=== PATIENT | female | born 1950 | race Caucasian/White ===

== ENCOUNTER 2018-08-07 10:22 | Emergency (ER) | payer MEDICARE, OTHER ==
[~2018-08-07] VITALS: Ht 175.3 cm; Wt 113.2 kg
[~2018-08-07 10:22] MED LIST: ALL DAY10 MG PO; ASPIRIN EC325 MG PO; CITRACA1 PO; CITRACAL200 MG PO; COLACE100 MG PO; CYCLOBENZAPR10 MG PO; DALMANE30 MG OR; DALMANE30 MG PO; DICLOFENAC SODI75 MG PO; DOXYCYCL HYC100 MG PO; FLEXERIL10 MG PO; FLUARIX QUADRIV1 INJ IM; FLUZONE SPLT1 M1 IM; KEFLEX500 MG PO; KEPPRA500 MG PO; LEVOTHROID50 MCG PO; LEVOTHYROXIN50 MC1 PO; LEVOTHYROXIN50 MCG PO; LEVOTHYROXIN75 MC1 PO; LEXAPRO10 MG PO; LEXAPRO20 MG PO; LIPITOR20 MG PO; LYRICA50 MG PO; MEDDOSEPAK PO; MULTIVITAMI1 OR; OXYBUTYNIN5 M1 PO; OXYCODONE5 MG OR; PREDNISONE20 MG PO; PREVACID15 M3 PO; PROTONIX40 M2 PO; PULMICORT90 MCG PO; SYNTHROID PO; SYNTHROID100 MCG PO; TEMAZEPAM15 MG PO; TEMAZEPAM30 MG PO; VENTOLIN HF1; VENTOLIN HFA IN; VITAMIN C1000 MG OR; VITAMIN D2000 UNI1 OR; VITAMIN D400 UNI1 OR
[2018-08-07 11:15] LABS: ALBUMIN 3.7 g/dL (3.2-5.0); ALKALINE PHOSPHATASE 65 u/l (38-126); ANION GAP 14 (6-22 (CALC)); BILIRUBIN, TOTAL 0.4 mg/dL (0.0-1.4); BUN 20 mg/dL (8-23); BUN/CREATININE RATIO 30 (12-20 (CALC)); CARBON DIOXIDE 23 mmol/l (22-30); CHLORIDE 108 mmol/l (95-108); CREATININE 0.7 mg/dL (0.5-1.0); GFR > 60 ML/MIN (>=60 (CALC)); GFR FOR AFR.AMER. > 60 ML/MIN (>=60 (CALC)); LIPASE 106 u/l (23-300); POTASSIUM 4.8 mmol/l (3.5-5.1); SGOT/AST 24 u/l (9-36); SODIUM 140 mmol/l (137-146); TOTAL PROTEIN 6.5 g/dL (6.3-8.2)
[2018-08-07 11:16] LABS: HEMATOCRIT 37.8 % (37.0-47.0); HEMOGLOBIN 11.8 g/dl (12.0-16.0); MEAN CELL VOLUME 78.4 fL CALC (80.0-100.0); MEAN CORPUSCULAR HGB 24.5 pG CALC (26.0-32.0); MEAN CORPUSCULAR HGB CONC 31.2 g/L CALC (32.0-36.0); NEUT# 5.49 thou/uL (2.00-7.15); RED BLOOD COUNT 4.82 mill/uL (4.20-5.60); RED CELL DISTRI WIDTH 20.9 % (11.5-15.5)
[2018-08-07] MEDS ORDERED: ROWEEPRA500 MG PO (11:21)
[2018-08-07] MEDS ORDERED: ASPIRIN81 MG PO (11:22)
[2018-08-07] MEDS ORDERED: LEXAPRO10 MG PO (11:23)
[2018-08-07] MEDS ORDERED: BENADRYL 25MG C25 MG PO (11:23)
[2018-08-07] MEDS ORDERED: PRAVASTATIN20 MG PO (11:25)
[2018-08-07] MEDS ORDERED: LYRICA50 MG PO (11:26)
[2018-08-07] MEDS ORDERED: DICLOFENAC SODI75 MG PO (11:28)
[2018-08-07] MEDS ORDERED: BUPROPION150 M4 PO (11:29)
[2018-08-07] MEDS ORDERED: OMEPRAZOLE10 MG PO (11:30)
[2018-08-07 11:32] LABS: D-DIMER 3.94 mg/L (0.19-0.60)
[2018-08-07 12:05] LABS: IMMATURE GRANULOCYTES 9.6 % (0.0-5.0)
[2018-08-07 15:47] VITALS: BP 94/65
== END 2018-08-07 15:47 | disposition short-term general hospital (02) ==
LOC: ED 10:22 → ED-I 10:44 → ED 15:47
PROVIDERS: Emergency Medicine
DX: T80.0XXA Air embolism following infusion, transfusion and therapeutic injection, initial encounter (principal); Z86.73 Personal history of transient ischemic attack (TIA), and cerebral infarction without residual deficits; I25.2 Old myocardial infarction; Z95.1 Presence of aortocoronary bypass graft
CPT/HCPCS: J1650; J2060; Q9967

== ENCOUNTER 2018-09-10 15:00 | Emergency (ER) | payer MEDICARE, OTHER ==
[~2018-09-10] VITALS: Ht 175.3 cm; Wt 112.3 kg
[~2018-09-10 15:00] MED LIST changes: +ASPIRIN81 MG PO; +BENADRYL 25MG C25 MG PO; +BUPROPION150 M4 PO; +OMEPRAZOLE10 MG PO; +PRAVASTATIN20 MG PO; +ROWEEPRA500 MG PO
[2018-09-10 16:11] LABS: HEMATOCRIT 39.1 % (37.0-47.0); HEMOGLOBIN 12.3 g/dl (12.0-16.0); IMMATURE GRANULOCYTES 0.3 % (0.0-5.0); MEAN CELL VOLUME 80.1 fL CALC (80.0-100.0); MEAN CORPUSCULAR HGB 25.2 pG CALC (26.0-32.0); MEAN CORPUSCULAR HGB CONC 31.5 g/L CALC (32.0-36.0); NEUT# 3.91 thou/uL (2.00-7.15); RED BLOOD COUNT 4.88 mill/uL (4.20-5.60); RED CELL DISTRI WIDTH 20.4 % (11.5-15.5)
[2018-09-10 16:12] LABS: GFR > 60 ML/MIN (>=60 (CALC)); GFR FOR AFR.AMER. > 60 ML/MIN (>=60 (CALC))
[2018-09-10 16:24] LABS: ANION GAP 13 (6-22 (CALC)); BUN 17 mg/dL (8-23); BUN/CREATININE RATIO 21 (12-20 (CALC)); CARBON DIOXIDE 25 mmol/l (22-30); CHLORIDE 106 mmol/l (95-108); CREATININE 0.8 mg/dL (0.5-1.0); GFR > 60 ML/MIN (>=60 (CALC)); GFR FOR AFR.AMER. > 60 ML/MIN (>=60 (CALC)); POTASSIUM 4.2 mmol/l (3.5-5.1); SODIUM 140 mmol/l (137-146)
[2018-09-10 17:23] VITALS: BP 132/73
== END 2018-09-10 17:46 | disposition home or self-care (01) ==
LOC: ED 15:00
PROVIDERS: Family Medicine
DX: R53.1 Weakness (principal); R42 Dizziness and giddiness; R41.0 Disorientation, unspecified; R20.2 Paresthesia of skin; G11.9 Hereditary ataxia, unspecified; I25.2 Old myocardial infarction; Z95.1 Presence of aortocoronary bypass graft; Z79.01 Long term (current) use of anticoagulants; Z86.73 Personal history of transient ischemic attack (TIA), and cerebral infarction without residual deficits
CPT/HCPCS: Q9967

== ENCOUNTER → 2018-11-19 | Outpatient (REF) | payer MEDICARE, OTHER ==
[~2018-11-19] MED LIST changes: +XARELTO10 MG PO
[2018-11-19 11:51] LABS: HEMATOCRIT 43.2 % (37.0-47.0); HEMOGLOBIN 13.6 g/dl (12.0-16.0); IMMATURE GRANULOCYTES 0.2 % (0.0-5.0); MEAN CORPUSCULAR HGB 26.5 pG CALC (26.0-32.0); MEAN CORPUSCULAR HGB CONC 31.5 g/L CALC (32.0-36.0); NEUT# 3.72 thou/uL (2.00-7.15); RED BLOOD COUNT 5.14 mill/uL (4.20-5.60); RED CELL DISTRI WIDTH 24.5 % (11.5-15.5)
[2018-11-19 12:31] LABS: ALBUMIN 4.2 g/dL (3.2-5.0); ALKALINE PHOSPHATASE 59 u/l (38-126); ANION GAP 12 (6-22 (CALC)); BILIRUBIN, TOTAL 0.5 mg/dL (0.0-1.4); BUN 16 mg/dL (8-23); BUN/CREATININE RATIO 19 (12-20 (CALC)); CARBON DIOXIDE 29 mmol/l (22-30); CHLORIDE 106 mmol/l (95-108); CREATININE 0.9 mg/dL (0.5-1.0); GFR > 60 ML/MIN (>=60 (CALC)); GFR FOR AFR.AMER. > 60 ML/MIN (>=60 (CALC)); POTASSIUM 4.4 mmol/l (3.5-5.1); SGOT/AST 30 u/l (9-36); SODIUM 143 mmol/l (137-146); TOTAL PROTEIN 6.7 g/dL (6.3-8.2)
== END | disposition home or self-care (01) ==
LOC: LAB 11:12
PROVIDERS: ATTEND Internal Medicine
DX: D50.9 Iron deficiency anemia, unspecified (principal)

== ENCOUNTER 2018-12-02 15:41 | Observation (INO) | payer MEDICARE, OTHER ==
[~2018-12-02] VITALS: Ht 170.2 cm; Wt 109.8 kg
[~2018-12-02 15:41] MED LIST changes: -XARELTO10 MG PO
--- NOTE | 2018-12-02 15:51 | NUR ---
PT TO ROOM VIA WC.
--- NOTE | 2018-12-02 16:35 | NUR ---
REMOVED C COLLAR PER MD ORDERED, C SPINE CLEARED. PT EXPRESSES RELEIF FROM NECK PAIN
--- NOTE | 2018-12-02 16:45 | NUR ---
PT WITH O2 SAT READING BETWEEN 90-98% , PT DENIES SOB OR DYSPNEA AT THIS TIME. APPLIED O2@2LPM TO MONITOR.
[2018-12-02 17:03] LABS: HEMATOCRIT 43.3 % (37.0-47.0); HEMOGLOBIN 13.5 g/dl (12.0-16.0); IMMATURE GRANULOCYTES 0.4 % (0.0-5.0); MEAN CELL VOLUME 84.9 fL CALC (80.0-100.0); MEAN CORPUSCULAR HGB 26.5 pG CALC (26.0-32.0); MEAN CORPUSCULAR HGB CONC 31.2 g/L CALC (32.0-36.0); NEUT# 2.84 thou/uL (2.00-7.15); RED BLOOD COUNT 5.1 mill/uL (4.20-5.60); RED CELL DISTRI WIDTH 23.9 % (11.5-15.5)
--- NOTE | 2018-12-02 17:20 | NUR ---
PT PULSE OX CONTINUES TO READ 89-98% ON O2@2LPM. RESP EVEN AND UNLABORED. DENIES DYSPNEA,CP OR DIZZINESS. MD AWARE. NURSE AT BEDSIDE. O2 DC TO AWAIT ABG. PT IN NO DISTRESS, STATES DOES NOT FEEL SOB. PT O2 SAT 87-94%.MEDICATED FOR 3/10 POSTERIOR HEADACHE. LIGHTS DIMMED FOR COMFORT. NURSE AT BEDSIDE
[2018-12-02 17:21] LABS: INTERNATIONAL NORMALIZED RATIO 1.1 RATIO (0.7-1.3)
[2018-12-02 17:23] LABS: ANION GAP 14 (6-22 (CALC)); BUN 17 mg/dL (8-23); BUN/CREATININE RATIO 19 (12-20 (CALC)); CARBON DIOXIDE 25 mmol/l (22-30); CHLORIDE 106 mmol/l (95-108); CREATININE 0.9 mg/dL (0.5-1.0); GFR > 60 ML/MIN (>=60 (CALC)); GFR FOR AFR.AMER. > 60 ML/MIN (>=60 (CALC)); POTASSIUM 4.4 mmol/l (3.5-5.1); SODIUM 140 mmol/l (137-146)
--- NOTE | 2018-12-02 17:50 | NUR ---
ABG DRAWN AND O2 RETURNED VIA NC @2LPM . PT DENIES CP OR PRESSURE
[2018-12-02] MEDS ORDERED: BENADRYL 25MG C25 MG PO (17:58)
--- NOTE | 2018-12-02 18:10 | NUR ---
ASSISSTED PT WITH LINEN CHANGE. PUREWICK APPLIED PER PT REQUEST FOR URINE. PT ALERT AND ORIENTED
--- NOTE | 2018-12-02 18:50 | NUR ---
RECEIVED REPORT FROM PHILIPP HITCHCOCK, IN ROOM INTRODUCED SELF TO PT. NO C/O AT THIS TIME.
--- NOTE | 2018-12-02 19:00 | NUR ---
PT. GIVEN DINNER TRAY.
--- NOTE | 2018-12-02 19:10 | NUR ---
ASSISTED WITH MEAL TRAY.
--- NOTE | 2018-12-02 20:14 | NUR ---
ATE 100% OF MEAL.
--- NOTE | 2018-12-02 20:58 | NUR ---
PT. TAKEN TO [facility] [place] VIA STRETCHER.
--- NOTE | 2018-12-02 21:19 | NUR ---
PT. BROUGHT UP VIA STRETCHER ACCOMPANIED BY ER NURSE; PT. ABLE TO TRANSFER TO BED WITH MINIMAL ASST. A/A/OX3; ADMISSION ASSESSMENT COMPLETED; BRUISE NOTED TO RIGHT BUTTOCK AND RIGHT MODI; SKIN INTACT; RIGHT LEG IS LONGER THAN LEFT LEG PER PT THIS IS A REULT FROM REVISION TO RIGHT KNEE; PT. IS WITH SLOW SPEECH AND SLIGHTLY SLURRED DUE TO CEREBULAR ATAXIA; PT. DOES REPORT STUTTERING POST FALL; NONE OBSERVED AT THIS TIME; PO FLUIDS OFFERED; ENCOURAGED TO CALL FOR ANY NEEDS; PT. INSTRUCTED NOT TO GET OOB ALONE; VERBALIZES UNDERSTANDING; PURE WIC IN PLACE PER PTS REQUEST; CALL LIGHT IS IN REACH.
[2018-12-02 21:45] VITALS: BP 137/76
--- NOTE | 2018-12-02 23:44 | NUR ---
PT. RESTING IN BED WITH EYES OPEN; NO DISTRESS NOTED; DENIES NEEDS/PAIN; CALL LIGHT IS IN REACH.
[2018-12-03 00:09] VITALS: BP 93/58
[2018-12-03 04:00] VITALS: BP 99/50
--- NOTE | 2018-12-03 04:00 | NUR ---
NEURO CHECK COMPLETED AND REMAINS UNCHANGED; VS OBTAINED; PO FLUIDS OFFERED; DENIES NEEDS; CALL LIGHT IS IN REACH.
[2018-12-03 07:19] LABS: HEMATOCRIT 39.8 % (37.0-47.0); HEMOGLOBIN 12.5 g/dl (12.0-16.0); MEAN CELL VOLUME 84.7 fL CALC (80.0-100.0); MEAN CORPUSCULAR HGB 26.6 pG CALC (26.0-32.0); MEAN CORPUSCULAR HGB CONC 31.4 g/L CALC (32.0-36.0); NEUT# 2.79 thou/uL (2.00-7.15); RED BLOOD COUNT 4.7 mill/uL (4.20-5.60); RED CELL DISTRI WIDTH 23.9 % (11.5-15.5)
[2018-12-03] MEDS ORDERED: XARELTO10 MG PO (07:23)
[2018-12-03 07:36] LABS: ALBUMIN 3.7 g/dL (3.2-5.0); ALKALINE PHOSPHATASE 55 u/l (38-126); ANION GAP 12 (6-22 (CALC)); BILIRUBIN, TOTAL 0.6 mg/dL (0.0-1.4); BUN 13 mg/dL (8-23); BUN/CREATININE RATIO 15 (12-20 (CALC)); CARBON DIOXIDE 25 mmol/l (22-30); CHLORIDE 108 mmol/l (95-108); CREATININE 0.9 mg/dL (0.5-1.0); GFR > 60 ML/MIN (>=60 (CALC)); GFR FOR AFR.AMER. > 60 ML/MIN (>=60 (CALC)); LIPASE 41 u/l (23-300); SGOT/AST 24 u/l (9-36); SODIUM 141 mmol/l (137-146)
[2018-12-03 07:37] LABS: AMYLASE < 30 u/l (30-110)
[2018-12-03 08:10] VITALS: BP 98/66
--- NOTE | 2018-12-03 08:10 | NUR ---
ASSESSMENT IS COMPLETED: IV SITE IS FREE FROM REDNESS OR EDEMA. HR IS REG,PULSES ARE STRONG X4, ABD IS SOFT WITH ACTIVE BS. BREATH SOUNDS ARE CLEAR, BILATERALLY. PT HAD A PUREWICK IN PLACE, C/O LEAKING. WILL GET PT UP AND IN THE CHAIR, AND MAY USE THE BSC. VERBALIZED UNDERSTANDING CONTINUE TO OSEBRVE AND MONITOR. CALL EAGLE WITHIN REACH
[2018-12-03 10:50] VITALS: BP 110/79
--- NOTE | 2018-12-03 12:45 | NUR ---
PT IS RELAXING IN BED WITH NO DISTRESS NOTED. IV SITE IS FREE FROM REDNESS OR EDEMA.
[2018-12-03 15:48] VITALS: BP 102/61
--- NOTE | 2018-12-03 16:34 | NUR ---
PT IS DISCHARGED ALL PAPERS AND BELONGINGS. IV SITE IS DISCONTINUED CATHETER INTACT. NO REDNESS OR EDEMA.
== END 2018-12-03 16:23 | disposition home or self-care (01) ==
LOC: ED 15:41 → ED-I 16:39 → ED 17:27 → ED-I 17:28 → MS2 17:28
PROVIDERS: Family Medicine; ADMIT Internal Medicine Nephrology; ATTEND Internal Medicine Nephrology
DX: R51 Headache (principal); M54.2 Cervicalgia; G11.9 Hereditary ataxia, unspecified; G40.909 Epilepsy, unspecified, not intractable, without status epilepticus; I25.10 Atherosclerotic heart disease of native coronary artery without angina pectoris; K21.9 Gastro-esophageal reflux disease without esophagitis; E78.5 Hyperlipidemia, unspecified; F41.1 Generalized anxiety disorder; E03.9 Hypothyroidism, unspecified; I25.2 Old myocardial infarction; W18.30XA Fall on same level, unspecified, initial encounter; Y92.009 Unspecified place in unspecified non-institutional (private) residence as the place of occurrence of the external cause; Z86.73 Personal history of transient ischemic attack (TIA), and cerebral infarction without residual deficits; Z95.1 Presence of aortocoronary bypass graft; Z86.711 Personal history of pulmonary embolism; Z96.653 Presence of artificial knee joint, bilateral; Z79.01 Long term (current) use of anticoagulants; Z91.81 History of falling
CPT/HCPCS: G0378; Q9967

== ENCOUNTER → 2018-12-11 | Outpatient (REF) | payer MEDICARE, OTHER ==
[~2018-12-11] MED LIST changes: +XARELTO10 MG PO
== END | disposition home or self-care (01) ==
LOC: CT 13:04
PROVIDERS: ATTEND Nurse Practitioner
DX: R51 Headache (principal); S09.90XA Unspecified injury of head, initial encounter

== ENCOUNTER 2019-08-11 06:21 | Day surgery (SDC) | payer MEDICARE, OTHER ==
[~2019-08-11] VITALS: Ht 170.2 cm; Wt 99.8 kg
[~2019-08-11 06:21] MED LIST changes: +MIDODRINE5 MG PO
[2019-08-11 10:48] VITALS: BP 135/76
== END 2019-08-11 10:05 | disposition home or self-care (01) ==
LOC: ORM 06:21
PROVIDERS: ATTEND Anesthesiology Pain Medicine
DX: M54.5 Low back pain (principal); M12.9 Arthropathy, unspecified

== ENCOUNTER 2019-08-25 | Day surgery (SDC) | payer MEDICARE, OTHER | END 2019-08-25 09:25 | disposition home or self-care (01) | DX: M54.5 Low back pain (principal); M51.37 Other intervertebral disc degeneration, lumbosacral region ==

== ENCOUNTER 2019-09-07 20:38 | Emergency (ER) | payer MEDICARE, OTHER ==
[~2019-09-07] VITALS: Ht 170.2 cm; Wt 95.0 kg
[2019-09-07 20:59] LABS: HEMATOCRIT 43.8 % (37.0-47.0); HEMOGLOBIN 13.9 g/dl (12.0-16.0); IMMATURE GRANULOCYTES 0.2 % (0.0-5.0); MEAN CELL VOLUME 92.4 fL CALC (80.0-100.0); MEAN CORPUSCULAR HGB 29.3 pG CALC (26.0-32.0); MEAN CORPUSCULAR HGB CONC 31.7 g/L CALC (32.0-36.0); NEUT# 5.97 thou/uL (2.00-7.15); RED BLOOD COUNT 4.74 mill/uL (4.20-5.60); RED CELL DISTRI WIDTH 15.2 % (11.5-15.5)
[2019-09-07 21:03] LABS: GFR > 60 ML/MIN (>=60 (CALC)); GFR FOR AFR.AMER. > 60 ML/MIN (>=60 (CALC))
[2019-09-07 21:16] LABS: ALBUMIN 4.3 g/dL (3.2-5.0); ALKALINE PHOSPHATASE 67 u/l (38-126); ANION GAP 14 (6-22 (CALC)); BUN 18 mg/dL (8-23); BUN/CREATININE RATIO 22 (12-20 (CALC)); CARBON DIOXIDE 26 mmol/l (22-30); CHLORIDE 105 mmol/l (95-108); CREATININE 0.8 mg/dL (0.5-1.0); GFR > 60 ML/MIN (>=60 (CALC)); GFR FOR AFR.AMER. > 60 ML/MIN (>=60 (CALC)); POTASSIUM 4.1 mmol/l (3.5-5.1); SGOT/AST 24 u/l (9-36); SODIUM 142 mmol/l (137-146); TOTAL PROTEIN 7.6 g/dL (6.3-8.2)
[2019-09-07 21:17] LABS: ACT PARTIAL THROMBO TIME 25.9 SECONDS (20.0-32.5)
[2019-09-07 21:20] LABS: BILIRUBIN, TOTAL 0.4 mg/dL (0.0-1.4)
[2019-09-07 21:28] LABS: MYOGLOBIN 26 ng/mL (0 - 62)
[2019-09-07 23:50] VITALS: BP 105/68
== END 2019-09-07 23:35 | disposition short-term general hospital (02) ==
LOC: ED 20:38
PROVIDERS: Emergency Medicine
DX: I63.9 Cerebral infarction, unspecified (principal); R47.81 Slurred speech; G83.11 Monoplegia of lower limb affecting right dominant side; R29.702 NIHSS score 2; I25.10 Atherosclerotic heart disease of native coronary artery without angina pectoris; G11.9 Hereditary ataxia, unspecified; I25.2 Old myocardial infarction; G40.909 Epilepsy, unspecified, not intractable, without status epilepticus; Z79.01 Long term (current) use of anticoagulants; Z86.73 Personal history of transient ischemic attack (TIA), and cerebral infarction without residual deficits; Z95.1 Presence of aortocoronary bypass graft; Z79.82 Long term (current) use of aspirin; Z86.711 Personal history of pulmonary embolism

== ENCOUNTER 2019-10-13 | Emergency (ER) | payer MEDICARE, OTHER ==
[2019-10-13 15:04] LABS: HEMATOCRIT 42.1 % (37.0-47.0); HEMOGLOBIN 13.7 g/dl (12.0-16.0); IMMATURE GRANULOCYTES 0.2 % (0.0-5.0); MEAN CELL VOLUME 91.1 fL CALC (80.0-100.0); MEAN CORPUSCULAR HGB 29.7 pG CALC (26.0-32.0); MEAN CORPUSCULAR HGB CONC 32.5 g/L CALC (32.0-36.0); NEUT# 3.82 thou/uL (2.00-7.15); RED BLOOD COUNT 4.62 mill/uL (4.20-5.60); RED CELL DISTRI WIDTH 14.8 % (11.5-15.5)
[2019-10-13 15:27] LABS: ALBUMIN 3.9 g/dL (3.2-5.0); ALKALINE PHOSPHATASE 61 u/l (38-126); ANION GAP 12 (6-22 (CALC)); BILIRUBIN, TOTAL 0.5 mg/dL (0.0-1.4); BUN 15 mg/dL (8-23); BUN/CREATININE RATIO 21 (12-20 (CALC)); CARBON DIOXIDE 25 mmol/l (22-30); CHLORIDE 105 mmol/l (95-108); CPK 48 u/l (30-165); CREATININE 0.7 mg/dL (0.5-1.0); GFR > 60 ML/MIN (>=60 (CALC)); GFR FOR AFR.AMER. > 60 ML/MIN (>=60 (CALC)); POTASSIUM 4.3 mmol/l (3.5-5.1); SGOT/AST 26 u/l (9-36); SODIUM 138 mmol/l (137-146); TOTAL PROTEIN 6.7 g/dL (6.3-8.2)
[2019-10-13] MEDS ORDERED: TORADOL PO (15:46)
== END 2019-10-13 16:08 | disposition home or self-care (01) ==
PROVIDERS: Family Medicine
DX: S29.012A Strain of muscle and tendon of back wall of thorax, initial encounter (principal); R09.1 Pleurisy; G40.909 Epilepsy, unspecified, not intractable, without status epilepticus; G11.9 Hereditary ataxia, unspecified; I25.2 Old myocardial infarction; X58.XXXA Exposure to other specified factors, initial encounter; Z86.73 Personal history of transient ischemic attack (TIA), and cerebral infarction without residual deficits; Z95.1 Presence of aortocoronary bypass graft; Z86.711 Personal history of pulmonary embolism
CPT/HCPCS: J0131

== ENCOUNTER 2020-11-26 22:34 | Emergency (ER) | payer MEDICARE, OTHER ==
[~2020-11-26] VITALS: Ht 175.3 cm; Wt 109.0 kg
[~2020-11-26 22:34] MED LIST changes: +TORADOL PO
[2020-11-26 23:01] LABS: HEMATOCRIT 40.9 % (37.0-47.0); HEMOGLOBIN 13.3 g/dl (12.0-16.0); IMMATURE GRANULOCYTES 0.1 % (0.0-5.0); MEAN CELL VOLUME 89.1 fL CALC (80.0-100.0); MEAN CORPUSCULAR HGB CONC 32.5 g/dL CAL (32.0-36.0); RED BLOOD COUNT 4.59 mill/uL (4.20-5.60); RED CELL DISTRI WIDTH 14.5 % (11.5-15.5)
[2020-11-26] MEDS ORDERED: VESICARE10 MG PO (23:40)
[2020-11-26 23:52] LABS: ALBUMIN 4.1 g/dL (3.2-5.0); ALKALINE PHOSPHATASE 58 u/l (38-126); ANION GAP 12 (6-22 (CALC)); BILIRUBIN, TOTAL 0.7 mg/dL (0.0-1.4); BUN 19 mg/dL (8-23); CARBON DIOXIDE 28 mmol/l (22-30); CHLORIDE 103 mmol/l (95-108); POTASSIUM 3.9 mmol/l (3.5-5.1); SGOT/AST 29 u/l (9-36); SODIUM 139 mmol/l (137-146); TOTAL PROTEIN 6.8 g/dL (6.3-8.2)
[2020-11-26 23:57] LABS: BUN/CREATININE RATIO 24 (12-20 (CALC)); CREATININE 0.8 mg/dL (0.5-1.0); GFR > 60 ML/MIN (>=60 (CALC)); GFR FOR AFR.AMER. > 60 ML/MIN (>=60 (CALC))
[2020-11-27 02:12] VITALS: BP 111/62
[2020-11-27] MEDS ORDERED: PERCOCET 5/325M1 TAB PO (02:23)
== END 2020-11-27 02:37 | disposition home or self-care (01) ==
LOC: ED 22:34
PROVIDERS: Emergency Medicine
DX: M25.562 Pain in left knee (principal); G11.9 Hereditary ataxia, unspecified; G40.909 Epilepsy, unspecified, not intractable, without status epilepticus; I25.2 Old myocardial infarction; Z86.718 Personal history of other venous thrombosis and embolism; Z79.01 Long term (current) use of anticoagulants; Z86.711 Personal history of pulmonary embolism; Z86.73 Personal history of transient ischemic attack (TIA), and cerebral infarction without residual deficits; Z95.1 Presence of aortocoronary bypass graft; Z96.653 Presence of artificial knee joint, bilateral; M79.89 Other specified soft tissue disorders

== ENCOUNTER 2024-09-17 14:49 | Emergency (ER) | payer MEDICARE, OTHER ==
[2024-09-17] VITALS (13 sets, daily range): BP systolic 107–119; BP diastolic 64–74
[~2024-09-17] VITALS: Ht 172.7 cm; Wt 79.0 kg
[~2024-09-17 14:49] MED LIST changes: +ACETAMINOPHEN325 MG PO; +DICLOFENAC75 MG PO; +DULOXETINE HCL60 MG; +ELAVIL25 M1 PO; +LYRICA100 MG PO; +PERCOCET 5/325M1 TAB PO; +PROLIA60 MG/ML SC; +RESTORIL15 MG PO; +TRAZODONE50 MG PO; +VESICARE10 MG PO
[2024-09-17 15:28] LABS: BASO% 0.8 % (0-3); EOS% 2.9 % (0-8); HEMATOCRIT 38.2 % (37.0-47.0); HEMOGLOBIN 12.5 g/dl (12.0-16.0); IMMATURE GRANULOCYTES 0.2 % (0.0-5.0); LYMPH% 33.5 % (15-41); MEAN CELL VOLUME 89.5 fL CALC (80.0-100.0); MEAN CORPUSCULAR HGB 29.3 pG CALC (26.0-32.0); MEAN CORPUSCULAR HGB CONC 32.7 g/dL CAL (32.0-36.0); MONO% 8.3 % (2-13); NEUT# 2.6 thou/uL (2.00-7.15); NEUT% 54.3 % (42-76); RED BLOOD COUNT 4.27 mill/uL (4.20-5.60); RED CELL DISTRI WIDTH 13.8 % (11.5-15.5)
[2024-09-17 15:47] LABS: ALBUMIN 4.1 g/dL (3.2-5.0); BILIRUBIN, TOTAL 0.6 mg/dL (0.02-1.3); CREATININE 0.9 mg/dL (0.5-1.0); TOTAL PROTEIN 6.5 g/dL (6.3-8.2)
[2024-09-17] MEDS ORDERED: PREDNISONE20 MG PO (16:53)
[2024-09-17] MEDS ORDERED: VALACYCLOVIR HYD1 GM PO (16:53)
== END 2024-09-17 18:00 | disposition home or self-care (01) ==
LOC: ED 14:49
PROVIDERS: Family Medicine
DX: G51.0 Bell's palsy (principal); G11.9 Hereditary ataxia, unspecified; G40.909 Epilepsy, unspecified, not intractable, without status epilepticus; Z86.73 Personal history of transient ischemic attack (TIA), and cerebral infarction without residual deficits; Z95.1 Presence of aortocoronary bypass graft; Z86.711 Personal history of pulmonary embolism

== ENCOUNTER 2024-11-26 06:28 | Emergency (ER) | payer MEDICARE, OTHER ==
[~2024-11-26] VITALS: Ht 172.7 cm; Wt 72.0 kg
[~2024-11-26 06:28] MED LIST changes: +VALACYCLOVIR HYD1 GM PO
[2024-11-26 06:34] VITALS: BP 107/68
[2024-11-26 07:00] VITALS: BP 115/69
[2024-11-26 07:34] LABS: BASO% 0.8 % (0-3); EOS% 2.9 % (0-8); HEMATOCRIT 37.4 % (37.0-47.0); IMMATURE GRANULOCYTES 0.2 % (0.0-5.0); LYMPH% 32.4 % (15-41); MEAN CELL VOLUME 89.9 fL CALC (80.0-100.0); MEAN CORPUSCULAR HGB 28.8 pG CALC (26.0-32.0); MEAN CORPUSCULAR HGB CONC 32.1 g/dL CAL (32.0-36.0); MONO% 7.8 % (2-13); NEUT# 2.93 thou/uL (2.00-7.15); NEUT% 55.9 % (42-76); RED BLOOD COUNT 4.16 mill/uL (4.20-5.60); RED CELL DISTRI WIDTH 14.2 % (11.5-15.5)
[2024-11-26 08:04] VITALS: BP 134/76
[2024-11-26 08:22] LABS: URINE BILIRUBIN - DIPSTICK Negative (NEGATIVE); URINE BLOOD DIPSTICK Negative (NEGATIVE); URINE GLUCOSE - DIPSTICK Negative (NEGATIVE); URINE KETONE Negative (NEGATIVE); URINE LEUK ESTERASE Negative (NEGATIVE); URINE NITRITE - DIPSTICK Negative (Negative); URINE PROTEIN - DIPSTICK Negative (NEG-TRACE); URINE UROBILINOGEN - DIPSTICK 0.2 E.U./dL (0.2)
[2024-11-26 08:24] LABS: URINE COLOR Yellow
[2024-11-26 08:30] VITALS: BP 125/79
[2024-11-26] MEDS ORDERED: ACETAMINOPHEN 500 MG TAB PO ONE (08:40)
[2024-11-26 08:44] VITALS: BP 125/79
== END 2024-11-26 08:51 | disposition home or self-care (01) ==
LOC: ED 06:28
PROVIDERS: Emergency Medicine
DX: S00.11XA Contusion of right eyelid and periocular area, initial encounter (principal); S80.01XA Contusion of right knee, initial encounter; S40.011A Contusion of right shoulder, initial encounter; I25.2 Old myocardial infarction; G40.909 Epilepsy, unspecified, not intractable, without status epilepticus; G11.9 Hereditary ataxia, unspecified; W18.39XA Other fall on same level, initial encounter; Z86.711 Personal history of pulmonary embolism; Z95.1 Presence of aortocoronary bypass graft; Z86.73 Personal history of transient ischemic attack (TIA), and cerebral infarction without residual deficits

== ENCOUNTER 2024-11-30 22:52 | Emergency (ER) | payer MEDICARE, OTHER ==
[~2024-11-30] VITALS: Ht 172.7 cm; Wt 88.0 kg
[2024-11-30 23:00] VITALS: BP 108/73
[2024-11-30] MEDS ORDERED: XARELTO20 MG PO (23:21)
[2024-11-30 23:27] LABS: HEMATOCRIT 33.1 % (37.0-47.0); HEMOGLOBIN 10.7 g/dl (12.0-16.0); IMMATURE GRANULOCYTES 0.2 % (0.0-5.0); LYMPH% 41.7 % (15-41); MEAN CELL VOLUME 87.3 fL CALC (80.0-100.0); MEAN CORPUSCULAR HGB 28.2 pG CALC (26.0-32.0); MEAN CORPUSCULAR HGB CONC 32.3 g/dL CAL (32.0-36.0); MONO% 8.6 % (2-13); NEUT# 2.38 thou/uL (2.00-7.15); NEUT% 46.5 % (42-76); RED BLOOD COUNT 3.79 mill/uL (4.20-5.60); RED CELL DISTRI WIDTH 14.2 % (11.5-15.5)
[2024-11-30 23:30] VITALS: BP 113/70
[2024-11-30 23:41] LABS: URINE BILIRUBIN - DIPSTICK Negative (NEGATIVE); URINE BLOOD DIPSTICK Negative (NEGATIVE); URINE GLUCOSE - DIPSTICK Negative (NEGATIVE); URINE KETONE Negative (NEGATIVE); URINE LEUK ESTERASE Negative (NEGATIVE); URINE NITRITE - DIPSTICK Negative (Negative); URINE PH 7.5 (4.5-8.0); URINE PROTEIN - DIPSTICK Negative (NEG-TRACE); URINE SPECIFIC GRAVITY 1.015; URINE UROBILINOGEN - DIPSTICK 0.2 E.U./dL (0.2)
[2024-11-30 23:42] LABS: URINE COLOR Yellow
[2024-11-30 23:45] LABS: ALBUMIN 3.9 g/dL (3.2-5.0); BILIRUBIN, TOTAL 0.8 mg/dL (0.02-1.3); CREATININE 0.9 mg/dL (0.5-1.0); POTASSIUM 4.1 mmol/l (3.5-5.1); TOTAL PROTEIN 6.4 g/dL (6.3-8.2)
[2024-11-30 23:48] LABS: ACT PARTIAL THROMBO TIME 31.1 SECONDS (20.0-32.5); INTERNATIONAL NORMALIZED RATIO 1.2 RATIO (0.7-1.3)
[2024-11-30 23:49] LABS: PROTHROMBIN TIME 12.3 SECONDS (9.0-12.5)
[2024-12-01 00:17] VITALS: BP 101/61
[2024-12-01 00:30] VITALS: BP 106/64
[2024-12-01 01:00] VITALS: BP 103/63
[2024-12-01 01:11] VITALS: BP 103/63
== END 2024-12-01 01:15 | disposition home or self-care (01) ==
LOC: ED 22:52
PROVIDERS: Family Medicine
DX: R20.2 Paresthesia of skin (principal); G40.909 Epilepsy, unspecified, not intractable, without status epilepticus; G11.9 Hereditary ataxia, unspecified; I25.2 Old myocardial infarction; Z95.1 Presence of aortocoronary bypass graft; Z86.711 Personal history of pulmonary embolism; Z96.653 Presence of artificial knee joint, bilateral; Z86.73 Personal history of transient ischemic attack (TIA), and cerebral infarction without residual deficits